=== PATIENT | male | born 1975 | race Caucasian/White ===

== ENCOUNTER 2022-07-03 18:15 | Emergency (ER) | payer OTHER ==
[~2022-07-03] VITALS: Ht 177.8 cm; Wt 95.7 kg
--- NOTE | 2022-07-03 18:25 | NUR ---
IV INSERTED RT AC EXTRACTED BLD SENT TO LAB
[2022-07-03] MEDS ORDERED: TDAP [DIPH/PERTUSSIS/TET] 0.5 ML VIAL IM ONE ×2 (18:30→19:06)
--- NOTE | 2022-07-03 18:44 | NUR ---
[facility] [phone]
--- NOTE | 2022-07-03 18:49 | NUR ---
CALLED [facility] [phone] DR. SMITH WILL CALL US BACK.
--- NOTE | 2022-07-03 18:55 | NUR ---
DR. SMITH SPEAKING WITH DR. PORRAS.
[2022-07-03] MEDS ORDERED: LIDOCAINE HCL/PF 1% 30 ML VIAL TP ONE (19:00)
[2022-07-03] MEDS ORDERED: PIPERACILLIN /TAZOBACTAM 3.375 G in IV D5W 50 ML IV ONE (19:00)
[2022-07-03] MEDS ORDERED: LIDOCAINE HCL/MPF 1% 30 ML VIAL IJ ONE (19:06)
[2022-07-03] MEDS ORDERED: PIPERACILLIN /TAZOBACTAM 3.375 G VIAL IV ONE (19:06)
--- NOTE | 2022-07-03 19:09 | NUR ---
[facility] CC DOG BITE MULTIPLE AND KLACERATION AT 2ND DIGIT LT. MULTIPLE PUNCTURED WD AT AC AREA LT.
--- NOTE | 2022-07-03 19:10 | NUR ---
AWAITING FOR XRAY RESULT
--- NOTE | 2022-07-03 19:12 | NUR ---
DR PORRAS ON PHONE CALL WITH DR SARAH ZAIDI
[2022-07-03 19:32] LABS: CALCIUM, SERUM 9.1 mg/dL (8.5-10.1); CREATININE 1.1 mg/dL (0.6-1.3); POTASSIUM 3.6 mmol/L (3.5-5.1)
--- NOTE | 2022-07-03 19:35 | NUR ---
FAXED [facility] CRITICAL TRAUMA TRANSFER REQUEST [phone].
[2022-07-03 19:38] LABS: BILIRUBIN,DIRECT 0.1 mg/dL (0.0-0.2); BILIRUBIN,TOTAL 0.7 mg/dL (0.2-1.0); TOTAL PROTEIN, SERUM 7.5 g/dL (6.4-8.2)
--- NOTE | 2022-07-03 19:46 | NUR ---
CALLED [facility] [phone] ROMERO [address] DR. PORRAS.
--- NOTE | 2022-07-03 19:46 | NUR ---
CALLED [facility] PER [facility] #[id number].
--- NOTE | 2022-07-03 19:47 | NUR ---
CALLED [facility] [phone] NO BEDS AVAILABLE AT THIS TIME PER JEANIE.
--- NOTE | 2022-07-03 19:50 | NUR ---
CALLED [facility], NO AVAILABILITY.
--- NOTE | 2022-07-03 19:52 | NUR ---
CALLED [facility] [phone]. PER ENRIQUETA MANE NO AVAILABILITY.
--- NOTE | 2022-07-03 19:52 | NUR ---
CALLED [facility] SPEAKING WITH DR. PORRAS.
[2022-07-03 20:03] LABS: BASOPHILS % (AUTO) 0.7 % (0.0-2.0); HEMATOCRIT 43 % (39-51); HEMOGLOBIN 14.9 g/dL (13.5-17.5); LYMPHOCYTES # (AUTO) 2.9 K/uL (0.8-4.8); LYMPHOCYTES % (AUTO) 45.6 % (20.0-44.0); MEAN CORPUSCULAR HGB CONC 34 g/dl (31.0-36.0); MEAN CORPUSCULAR VOLUME 90 fL (80-96); MONOCYTES # (AUTO) 0.5 K/uL (0.1-1.30); MONOCYTES % (AUTO) 7.4 % (2.0-12.0); NEUTROPHILS # (AUTO) 2.9 K/uL (1.8-8.9); NEUTROPHILS % (AUTO) 44.3 % (43.0-81.0); PLATELET COUNT (AUTO) 220 K/uL (150-450); RED BLOOD CELL COUNT(AUTO) 4.84 MIL/uL (4.5-6.0); WHITE BLOOD COUNT (AUTO) 6.4 K/uL (4.3-11.0)
--- NOTE | 2022-07-03 20:32 | NUR ---
[facility] CALLED FOR UPDATE REGARDING PT TRANSFER. INFORMED HOSPITAL RECEPTIONIST THAT PT HAS NOT BEEN ACCEPTED AT A FACILITY YET.
--- NOTE | 2022-07-03 21:00 | NUR ---
[facility] CALLED FOR UPDATE REGARDING PT TRANSFER. INFORMED MEDICAL VIDEOGRAPHER THAT PT HAS NOT BEEN ACCEPTED AT A FACILITY YET.
--- NOTE | 2022-07-03 21:10 | NUR ---
Patient does not wish to proceed with medical care recommended by Dr. PORRAS. Patient given information related to possible complications, up to and including , which could occur as a result of leaving the hospital at this time. Patient verbalizes understanding of risks involved due to leaving against medical advice. Patient has signed AMA form.
[2022-07-03 21:40] VITALS: BP 140/89
== END 2022-07-03 21:31 | disposition left against medical advice (07) ==
LOC: ER 18:17
DX: S62.651B Nondisplaced fracture of middle phalanx of left index finger, initial encounter for open fracture (principal); Z20.822 Contact with and (suspected) exposure to COVID-19; W54.0XXA Bitten by dog, initial encounter; Y93.89 Activity, other specified; Y92.89 Other specified places as the place of occurrence of the external cause; Y99.8 Other external cause status
CPT/HCPCS: 99284; 96365; 87426; 90471; 90715; 73140; 85025; 80048; 80076; 36415; 85730; J3490 ×2; J2543; J7060; A6403; C9803